=== PATIENT | male | born 1995 | race Asian ===

== ENCOUNTER 2021-05-01 11:03 | Emergency (ER) | payer OTHER ==
[~2021-05-01] VITALS: Ht 162.6 cm; Wt 81.8 kg
--- NOTE | 2021-05-01 11:32 | REP ---
INDICATION: TRAUMA COMPARISON: None. TECHNIQUE: There are five views. FINDINGS: There is no fracture or dislocation. Mineralization and joint spaces are normal. There are no calcifications or foreign bodies. There is no hemarthrosis. IMPRESSION: Essentially negative right knee. <Electronically signed by Harish Pratt > 05/01/21 1125
[2021-05-01 13:54] VITALS: BP 118/78
== END 2021-05-01 13:56 | disposition home or self-care (01) ==
LOC: M ED 11:03
DX: S83.91XA Sprain of unspecified site of right knee, initial encounter (principal); S80.211A Abrasion, right knee, initial encounter; S80.212A Abrasion, left knee, initial encounter; X50.9XXA Other and unspecified overexertion or strenuous movements or postures, initial encounter; Y92.410 Unspecified street and highway as the place of occurrence of the external cause

== ENCOUNTER 2022-02-13 06:05 | Emergency (ER) | payer OTHER ==
[~2022-02-13] VITALS: Ht 162.6 cm; Wt 92.2 kg
[2022-02-13] MEDS ORDERED: AUGMENTIN 875 MG TAB PO ONE (08:20)
[2022-02-13] MEDS ORDERED: IBUPROFEN 800 MG TAB PO ONE (08:20)
[2022-02-13] MEDS ORDERED: AMOX875T2 PO (08:23)
[2022-02-13] MEDS ORDERED: CIPR7.5D5 OTIC (08:23)
[2022-02-13] MEDS ORDERED: IBUP-1022 PO (08:24)
[2022-02-13 08:58] VITALS: BP 128/72
== END 2022-02-13 09:01 | disposition home or self-care (01) ==
LOC: M ED 06:05
DX: H60.92 Unspecified otitis externa, left ear (principal)